=== PATIENT | female | born 1945 | race Two or more races ===

== ENCOUNTER → 2020-08-06 11:20 | Outpatient (BNVA) | payer MEDICARE, SELFPAY | PROVIDERS: PCP Internal Medicine; Visit Provider Internal Medicine | DX: J45.909 Unspecified asthma, uncomplicated (principal) | CPT/HCPCS: 99213 ==

== ENCOUNTER → 2021-02-03 10:52 | Outpatient (BNVA) | payer MEDICARE, SELFPAY | PROVIDERS: PCP Internal Medicine; Visit Provider Internal Medicine | DX: J45.909 Unspecified asthma, uncomplicated (principal); Z79.899 Other long term (current) drug therapy | CPT/HCPCS: 99212 ==

== ENCOUNTER → 2021-08-09 10:15 | Outpatient (BNVA) | payer MEDICARE, SELFPAY | PROVIDERS: PCP Internal Medicine; Visit Provider Internal Medicine | DX: J45.909 Unspecified asthma, uncomplicated (principal); J30.9 Allergic rhinitis, unspecified | CPT/HCPCS: 99212 ==

== ENCOUNTER → 2021-12-08 09:55 | Outpatient (BNVA) | payer MEDICARE, SELFPAY | PROVIDERS: PCP Internal Medicine; Visit Provider Internal Medicine | DX: J45.909 Unspecified asthma, uncomplicated (principal) | CPT/HCPCS: 99212 ==

== ENCOUNTER → 2022-06-16 11:28 | Outpatient (BNVA) | payer MEDICARE, SELFPAY | PROVIDERS: PCP Internal Medicine; Visit Provider Internal Medicine | DX: J45.909 Unspecified asthma, uncomplicated (principal); J30.9 Allergic rhinitis, unspecified | CPT/HCPCS: 99212 ==

== ENCOUNTER → 2022-12-14 11:27 | Outpatient (BNVA) | payer MEDICARE, SELFPAY | PROVIDERS: PCP Internal Medicine; Visit Provider Internal Medicine | DX: J45.909 Unspecified asthma, uncomplicated (principal) | CPT/HCPCS: 99212 ==

== ENCOUNTER → 2023-02-09 14:00 | Outpatient (BNVA) | payer MEDICARE, SELFPAY | PROVIDERS: PCP Internal Medicine; Visit Provider Internal Medicine | DX: J45.909 Unspecified asthma, uncomplicated (principal) | CPT/HCPCS: 99212 ==

== ENCOUNTER 2024-12-19 12:18 | Emergency (ER) | payer MEDICARE, SELFPAY ==
--- NOTE | ~2024-12-19 | CT_ITS ---
EXAMINATION: CT ABDOMEN AND PELVIS WITHOUT CONTRAST CLINICAL INFORMATION: Constipation. Concerning small bowel obstruction. COMPARISON: None available. TECHNIQUE: Multidetector volumetric imaging was performed from the superior aspect of the liver through the pubic symphysis. Sagittal and coronal reformatted images were obtained on the technologist's workstation. This CT examination was performed using dose optimization techniques as appropriate, variously including the following: *Automated exposure control *Adjustment of mA and/or kV according to patient size (this includes techniques or standardized protocols for targeted exams where dose is matched to indication/reason for exam; i.e. extremities or head) *Use of iterative reconstruction technique. DLP: 315 mGy centimeter. FINDINGS: Inadequate evaluation of the intra-abdominal organs and vascular structures due to lack of IV contrast. LUNG BASES: No acute airspace disease or discrete pulmonary nodules. LIVER, GALLBLADDER, AND BILIARY TREE: Liver measures 12 cm. No pericholecystic fluid collection or gallbladder wall thickening. No intrahepatic or extrahepatic biliary ductal dilatation. PANCREAS: No peripancreatic fluid collections. No main pancreatic ductal dilatation. SPLEEN: 7 cm. ADRENAL GLANDS: Soft tissue fullness without nodular lesion. KIDNEYS AND URETERS: 2 mm calcification in the lower pole right pelvicalyceal system. No hydronephrosis in a kidney. BLADDER: Fluid-filled. GASTROINTESTINAL TRACT: There is a questionable thickening at the rectosigmoid colon junction/rectum. Appendix is midline and normal. Abundant stool. Scattered diverticula in the sigmoid colon. No intestinal obstruction pattern. No pneumoperitoneum. No pneumatosis intestinalis. No ascites. ABDOMINAL WALL: Small fat-containing umbilical hernia. LYMPH NODES: No gross lymphadenopathy, mesenteric or retroperitoneal. VASCULAR: Calcified plaques throughout the abdominal aorta wall and iliac arteries the origin of the mesenteric arteries and splenic artery. No aneurysm in the abdominal aorta. Calcified plaques in the descending thoracic aorta. PELVIC VISCERA: Inadequate evaluation, no gross masses. OSSEOUS STRUCTURES: Multilevel thoracolumbar spondylosis more conspicuous at L3-4. No acute fracture. Osteopenia versus osteoporosis. Sclerosis in the inferior right sacroiliac joint. CT/CT abdomen pelvis wo IV con IMPRESSION: Questionable thickening versus peristalsis versus mass at the rectosigmoid colon junction/rectum. Recommend direct inspection. No intestinal obstruction pattern. Diverticular disease, sigmoid colon. Nonobstructing 2 mm nephrolithiasis, right kidney. Small fat-containing umbilical hernia. Fleischner guidelines were followed. Electronically signed by: Glen Mcbride MD 12/19/2024 02:00 PM KIRAN
[2024-12-19 13:05] VITALS: BP 110/83; PULSE 94; RESP 18; TEMP 36.6; O2SAT 100; BMI 45.4
--- NOTE | 2024-12-19 13:11 | ED_ITS ---
HPI - General Adult General Chief complaint: Abdominal Pain Stated complaint: constipation Time Seen by Provider: 12/19/24 16:08 Source: patient Mode of arrival: ambulatory Limitations: no limitations History of Present Illness ED Provider: Kat KENNEDY narrative: 79-year-old female presenting for constipation abdominal pain. Patient states that she has been experiencing constipation for 1 week and she is endorsing lower abdominal pain and pain near her rectum. She denies nausea, vomiting, fevers, chills, chest pain, shortness of breath. Related Data Home Medications ?Medication ?Instructions ?Recorded ?Confirmed amlodipine 5 mg tablet 5 mg PO DAILY 07/20/20 08/09/21 flu vacc [id number](65yr up)PF 180 ml IM 08/06/20 08/09/21 mcg/0.5 mL intramuscular syringe albuterol sulfate 90 mcg/actuation 2 puff inhalation Q6H PRN 12/08/21 aerosol inhaler Previous Rx's ?Medication ?Instructions ?Recorded fluticasone propionate 110 2 puff inhalation BID ASTHMA 30 02/08/23 mcg/actuation HFA aerosol inhaler days #12 grams (Flovent HFA) prednisone 10 mg tablet 10 mg PO BID Asthma Excarbation 5 02/09/23 days #10 tabs polyethylene glycol 3350 17 17 g PO DAILY #238 grams 12/19/24 gram/dose oral powder (Miralax) Allergies Allergy/AdvReac Type Severity Reaction Status Date / Time pseudoephedrine [Sudafed] Allergy Unknown palpitation Verified 12/19/24 13:07 s Review of Systems 2 Review of Systems: Yes all other systems are reviewed and are negative PMFSH Past Medical History Medical History Bronchial asthma Allergic rhinitis Social History Social History Patient Tobacco Use Status: Never used Tobacco Smoked in Last 30 Days: No Use of substances other than those prescribed or required for medical reasons: No Advance Directives: Yes Advance Directives on File: Yes Advance Directives Date on File: 12/19/24 Physical Exam ED Vital Signs: Vital Signs - 24 hr 12/19/24 13:05 12/19/24 16:16 12/19/24 18:12 Temperature 97.9 F 98.2 F Pulse Rate 94 65 79 Respiratory Rate 18 16 16 Blood Pressure 110/83 142/43 H 131/50 L Pulse Oximetry 100 99 98 Oxygen Delivery Method Room Air Room Air Room Air 12/19/24 20:06 12/19/24 20:48 Temperature 98.3 F 98.3 F Pulse Rate 77 77 Respiratory Rate 14 14 Blood Pressure 151/48 H 151/48 H Pulse Oximetry 97 97 Oxygen Delivery Method Room Air Room Air BMI result Body Mass Index 45.4 Well-appearing female in no acute distress A&O x4; normal speech and cognition Lungs clear to auscultation bilaterally with unlabored breathing Normal S1-S2 regular rate and rhythm Abdomen is soft nontender nondistended Rectal exam chaperoned by Malissa Gallegos; non thrombosed external hemorrhoid appreciated; no abscess or areas of erythema appreciated Course Course Course Narrative: RME: 79-year-old female presents to ED for 1 week of constipation and some weight loss. Patient states no relief with [id number] meds. Patient concerned due to daughter from colon cancer. Patient states this is a first-time being constipated in her life. Labs ordered. Dry CT scan ordered Medications Administered Discontinued Medications Generic Name Dose Route Start Last Admin Trade Name Freq PRN Reason Stop Dose Admin Lactulose 15 gm 12/19/24 16:32 12/19/24 17:13 Lactulose 20 Gm/30 Ml Solution PO 12/19/24 16:33 15 gm ONCE ONE Administration Mineral Oil 133 ml 12/19/24 16:31 12/19/24 17:13 Mineral Oil Enema 133 Ml Enema [place] 12/19/24 16:32 133 ml ONCE ONE Administration Medical Decision Making Medical Decision Making [facility] Narrative: 79-year-old female presenting for constipation abdominal pain -I am concerned for the following; benign constipation, hemorrhoidal pain, UTI, diverticulitis, bowel obstruction -labs and imaging studies ordered Lab and imaging interpretation -I reviewed patient's CT and did not appreciate bowel obstruction; radiologist's impression read Questionable thickening versus peristalsis versus mass at the rectosigmoid colon junction/rectum -mild leukocytosis, electrolytes within normal limits, normal lactic acid, normal lipase and LFTs -clean UA Enemas and lactulose ordered Patient made multiple trips to the bathroom reporting minimal stool output I discussed digital disimpaction attempted with patient and she is agreeable to this Lab Data 12/19/24 14:15 12/19/24 14:15 Labs: Lab Results 12/19/24 12/19/24 12/19/24 Range/Units 14:15 16:53 17:15 WBC 12.9 H (4.8-10.8) X10*3/uL RBC 4.38 (4.20-5.50) X10*6/uL Hgb 12.9 (12.0-16.0) g/dl Hct 38.6 (37.0-47.0) % MCV 88.1 (80.0-98.0) fL MCH 29.5 (27.0-33.0) pg MCHC 33.4 (31.0-35.0) g/dl RDW 12.8 (11.0-16.0) % Plt Count 309 (160-400) X10*3/uL MPV 9.6 (9.4-12.3) fL Immature Gran % (Auto) 0.4 (0.0-0.4) % Neut % (Auto) 67.1 (45-73) % Lymph % (Auto) 20.1 (20-40) % [place] % (Auto) 10.7 (2-11) % Eos % (Auto) 1.3 (0-4) % Baso % (Auto) 0.4 (0-2) % Lymph # (Auto) 2.6 (1.2-4.9) X10*3/uL [place] # (Auto) 1.4 H (0.1-1.2) X10*3/uL Eos # (Auto) 0.2 (0.0-0.4) X10*3/uL Baso # (Auto) 0.1 (0.0-0.2) X10*3/uL Abs Immat Gran (auto) 0.05 H (0.00-0.03) X10*3/uL Absolute Neuts (auto) 8.6 H (2.0-8.3) x10*3/uL Absolute Nucleated RBC 0.000 (0.0-0.012) X10*3/uL Nucleated RBC % (auto) 0.0 (0.0-0.2) /100WBC PT 11.0 (10.9-12.4) SEC INR 0.9 (0.9-1.1) APTT 29.5 (26.0-36.8) SEC Sodium 140 (135-145) mmol/L Potassium 4.0 (3.3-5.1) mmol/L Chloride 108 (96-108) mmol/L Carbon Dioxide 25 (22-29) mmol/L Anion Gap 11 L (12-20) BUN 13 (9-16) mg/dL Creatinine 0.83 (0.5-1.4) mg/dL Estim Creat Clear Calc 55.5 Estimated GFR > 60 Random Glucose 107 (60-115) mg/dL Lactic Acid 1.2 (0.5-2.0) mmol/L Calcium 10.0 (8.4-10.2) mg/dL Total Bilirubin 0.7 (0.0-1.0) mg/dL AST 18 (5-31) U/L ALT 9 (0-31) U/L Alkaline Phosphatase 46 (39-117) U/L Total Protein 6.8 (6.5-8.0) g/dL Albumin 4.1 (3.5-5.0) g/dL Lipase 35 (8-78) U/L Urine Color Yellow Urine Appearance Clear Urine pH 5.5 (5.0-9.0) Ur Specific [place] 1.010 (1.005-1.025) Urine Protein Negative (Neg-Trace) mg/dL Urine Glucose (UA) Negative (Negative) mg/dL Urine Ketones 15 (Negative) mg/dL Urine Blood Negative (Negative) Urine Nitrite Negative (Negative) Ur Leukocyte Esterase Trace H (Negative) Urine RBC 0-2 (0-2) /HPF Urine WBC 0-5 (0-5) /HPF Ur Squamous Epith Cells 0-2 (0-2) /HPF Urine Bacteria None Seen (None Seen) Hyaline Casts 0-2 (0-2) /LPF Discharge Plan Discharge Clinical Impression: Hemorrhoid, Constipation Patient Disposition: Home, Self-Care Instructions: Constipation (DC), Hemorrhoids (DC), High Fiber Diet (ED) Additional Instructions: Please refer to the additional resources including discharge paperwork regarding hemorrhoids and constipation. I sent MiraLax to your pharmacy which you can begin taking. Please follow up with the primary care provider next 24:48 hours for reassessment. If you develop any new or worsening symptoms please return to emergency department Prescriptions: New polyethylene glycol 3350 [Miralax] 17 gram/dose powder 17 g PO DAILY Qty: 238 0RF No Action fluticasone propionate [Flovent HFA] 110 mcg/actuation HFA aerosol inhaler 2 puff inhalation BID 30 Days Qty: 12 5RF Rx Instructions: administer with spacer Fluzone High-Dose 2019-20 (PF) 180 mcg/0.5 mL syringe IM amlodipine 5 mg tablet 5 mg PO DAILY albuterol sulfate 90 mcg/actuation HFA aerosol inhaler 2 puff inhalation Q6H PRN prednisone 10 mg tablet 10 mg PO BID 5 Days Qty: 10 0RF Interventions: ED Discharge Assessment Last Done: 12/19/24 20:48 Discharge Date/Time: 12/19/24 20:49 Print Language: Gambian
[2024-12-19 14:18] LABS: MANUAL DIFF FLAG NO
[2024-12-19 14:23] LABS: Basophils Absolute Auto 0.1 X10*3/uL (0.0-0.2); Basophils Percent Auto 0.4 % (0-2); Eosinophils Absolute Auto 0.2 X10*3/uL (0.0-0.4); Eosinophils Percent Auto 1.3 % (0-4); Hematocrit 38.6 % (37.0-47.0); Hemoglobin 12.9 g/dl (12.0-16.0); Imm Gran Abs Auto 0.05 X10*3/uL (0.00-0.03); Imm Gran Pct Auto 0.4 % (0.0-0.4); Lymphocytes Absolute Auto 2.6 X10*3/uL (1.2-4.9); Lymphocytes Percent Auto 20.1 % (20-40); Mean Corpuscular HGB Conc 33.4 g/dl (31.0-35.0); Mean Corpuscular Hemoglobin 29.5 pg (27.0-33.0); Mean Corpuscular Volume 88.1 fL (80.0-98.0); Mean Platelet Volume 9.6 fL (9.4-12.3); Monocytes Absolute Auto 1.4 X10*3/uL (0.1-1.2); Monocytes Percent Auto 10.7 % (2-11); Neutrophils Absolute Auto 8.6 x10*3/uL (2.0-8.3); Neutrophils Percent Auto 67.1 % (45-73); Platelet Count 309 X10*3/uL (160-400); Red Blood Count 4.38 X10*6/uL (4.20-5.50); Red Cell Distribution Width 12.8 % (11.0-16.0); White Blood Count 12.9 X10*3/uL (4.8-10.8)
[2024-12-19 14:25] LABS: INTERNATIONAL NORM RATIO 0.9 (0.9-1.1)
[2024-12-19 14:28] LABS: Partial Thromboplastin Time 29.5 SEC (26.0-36.8)
[2024-12-19 14:36] LABS: Alanine Aminotransferase 9 U/L (0-31); Albumin Level 4.1 g/dL (3.5-5.0); Alkaline Phosphatase 46 U/L (39-117); Anion Gap 11 (12-20); Aspartate Amino Transferase 18 U/L (5-31); Bilirubin Total 0.7 mg/dL (0.0-1.0); Blood Urea Nitrogen 13 mg/dL (9-16); Carbon Dioxide 25 mmol/L (22-29); Chloride 108 mmol/L (96-108); Creatinine Clr Calc Pharmacy 55.5; Estimated Glomerular Filt Rate > 60; Glucose Random 107 mg/dL (60-115); Lipase 35 U/L (8-78); Sodium 140 mmol/L (135-145); Total Protein 6.8 g/dL (6.5-8.0)
[2024-12-19 16:16] VITALS: BP 142/43; PULSE 65; RESP 16; TEMP 36.8; O2SAT 99
--- NOTE | 2024-12-19 16:30 | ECG_ITS ---
Test Reason : GI Blood Pressure : */* mmHG Vent. Rate : 71 BPM Atrial Rate : 71 BPM P-R Int : 140 ms QRS Dur : 76 ms QT Int : 376 ms P-R-T Axes : 70 2 51 degrees QTcB Int : 408 ms Normal sinus rhythm Normal ECG When compared with ECG of 07-Nov-2018 14:33, No significant change was found Referred By: Jon Stephens Electronically Signed By: Marcelino Champion
[2024-12-19 17:13] LABS: Lactic Acid 1.2 mmol/L (0.5-2.0)
[2024-12-19] MEDS: Mineral OiL enema 133 ML ENEMA PR (17:13)
[2024-12-19] MEDS: Lactulose 20 GM/30 ML SOLUTION 15 GM PO (17:13)
[2024-12-19 17:22] LABS: Appearance Urine Clear; Color Urine Yellow; Glucose Urine UA Negative (Negative); Leukocyte Esterase Urine Trace (Negative); Nitrite Urine Negative (Negative); PH 5.5 (5.0-9.0); UMIC TRIGGER UACC YES; Urine Blood Negative (Negative); Urine Ketones 15 mg/dL (Negative); Urine Protein Negative (Neg-Trace)
[2024-12-19 17:38] LABS: Bacteria Urine None Seen (None Seen); Hyaline Casts Urine 0-2 /LPF (0-2); RBC Urine 0-2 /HPF (0-2); Squamous Epithelial Cell Urine 0-2 /HPF (0-2); WBC Urine 0-5 /HPF (0-5)
[2024-12-19 18:12] VITALS: BP 131/50; PULSE 79; RESP 16; O2SAT 98
--- NOTE | 2024-12-19 19:04 | PC.NURSE ---
Patient able to have small BM but still feels there is something stuck up there provider Raffi made aware.
--- OUTSIDE RECORDS SUMMARY | 2024-12-19 19:17 | XMS_ITS | Encounter Summary ---
Author Organization [facility] Address [address] [place] [address] Care Team Providers Care Carpet Journeyman Name Role Phone Andrés Avelar MD Primary Care Provider [phone] Reason for Visit * Reason Onset Date Comments Constipation 12/19/2024 Encounter Details Date Type Department Care Team (Late st Contact Info) Description 12/19/2024 Nurse Triage Adult Medicine [address] [phone] Andrés Avelar MD [address] [place] [id number] Constipation Social History Tobacco Use Types Packs/Day Years Used Date Smoking Tobacco: Never Smokeless Tobacco: Never Alcohol Use Standard Drinks/Week Comments Yes 1.7 (1 standard drink = 0.6 oz p ure alcohol) Comments Unknown Sex and Gender Information Value Date Recorded Sex Assigned at Not on file Legal Sex Female 12:15 AM EST Gender Identity Not on file Sexual Orientation Not on file documented as of this encounter Progress Notes * Anh Mendiola RN - 12/19/2024 11:12 AM EST Reason for Disposition ? ? [1] Constant abdominal pain AND [2] present > 2 hours Answer Assessment - Initial Assessment Questions 1. STOOL PATTERN OR FREQUENCY: How often do you have a bowel movement (BM)? (Normal range: 3 times a day to every 3 days) When was your last BM? 5 days ago 2. STRAINING: Do you have to strain to have a BM? With straining she has small amount of stool 3. ONSET: When did the constipation begin? 5 days ago 5. RECTAL PAIN: Does your rectum hurt when the stool comes out? If Yes, ask: Do you have hemorrhoids? How bad is the pain? (Scale 1-10; or mild, moderate, severe) Has abd pain and rectal blood 6. BM COMPOSITION: Are the stools hard? Hard small stools 7. BLOOD ON STOOLS: Has there been any blood on the toilet tissue or on the surface of the BM? IfYes, ask: When was the last time? Has bright red blood with stools when she wipes 8. CHRONIC CONSTIPATION: Is this a new problem for you? If No, ask: How long have you had this problem? (days, weeks, months) New problem 8. CHANGES IN DIET OR HYDRATION: Have there been any recent changes in your diet? How much fluids are you drinking on a daily basis? How much have you had to drink today? Has changed diet and tried prune juice and fluids 9. MEDICINES: Have you been taking any new medicines? Are you taking any narcotic pain medicines? (e.g., Dilaudid, morphine, Percocet, Vicodin) None 10. LAXATIVES: Have you been using any stool softeners, laxatives, or enemas? If Yes, ask What, how often, and when was the last time? Several days of laxatives 11. ACTIVITY: How much walking do you do every day? Has your activity level decreased in the past week? No changes in activity 12. CAUSE: What do you think is causing the constipation? Unknown 13. MEDICAL HISTORY: Do you have a history of hemorrhoids, rectal fissures, rectal surgery, or rectal abscess? None 14. OTHER SYMPTOMS: Do you have any other symptoms? (e.g., abdomen pain, bloating, fever, vomiting) Npo chest pain or SOB, has a headache, has cramping abd pain, and more pain when she has the urge to empty her bowels, has nausea but has not vomited , today she is on so much discomfort she is stillin bed, has tried to manually disimpact herself but not able to 15. : Is there any chance you are ? When was your last menstrual period? N/a Protocols used: [id number] * Mikayla Mamadou - 12/19/2024 10:57 AM EST Patient call requires triage: Symptoms patient is presenting: Patient is calling in today stating she has been constipated for 3 days. PT has been taking Murelax to help but still hasn't used the BR How long has patient had these symptoms?: 3 days For ALL patients calling to schedule any appointment (routine, sick visit, follow up, consult, etc.) in the outpatient setting please ask the following questions: Do you have fever of higher than 101, sore throat with difficulty swallowing or severe shortness ofbreath? no If YES to any of these above symptoms, send a message to triage and do not book. Red dot. If no, an audio or video visit should be booked. Have you had close contact with someone with Coronavirus in the last 14 days? no Have you traveled abroad? no Have you traveled recently to another state outside of [place], [place], [place], [place], [place], [place], [place]? no o If yes, did you quarantine for 14 days or have a negative covid test? no If yes to any of the above, patient is not to be scheduled in office until after 14 day quarantine or negative covid test. If pain or injury related was it due to an accident at work or from a motor vehicle accident? If yes, date of accident/Injury: No If yes, gather 3rd green party insurance information Third Libertarian Information: not applicable PCP: Andrés Avelar MD Payor: [employer] / Plan: [employer] / Product Type: *No Product type* / documented in this encounter Plan of Treatment Upcoming Encounters Date Type Department Care Team (Late st Contact Info) Description 01/22/2025 10:00 AM EDT Office Visit Adult Medicine [address] [phone] Andrés Avelar MD [address] [place] [phone] documented as of this encounter Visit Diagnoses Not on filedocumented in this encounter Care Teams Carpet Journeyman Relationship Specialty Start Date End Date Andrés Avelar MD [address] [place] [address] PCP - General Internal Medicine 05/12/22 documented as of this encounter
--- OUTSIDE RECORDS SUMMARY | 2024-12-19 19:17 | XMS_ITS | Clinical Summary ---
Author Organization [address] [facility] Address [address] [place] [address] Phone Care Team Providers Care Field Sales Agent Name Role Phone Andrés Avelar MD Primary Care Provider Allergies Active Allergy Reactions Criticality Noted Date Comments Fluticasone Propion-Salmeterol Other 02/26/2018 Reports worsening cough, feeling of sand in throat and chest Ljieidpkggpkx-Bk-Tocraabxk in Other 09/20/2007 Heart palpItations Medications calcium carbonate/vitam in D3 (CALCIUM 500 + D ORAL) Take 1 tablet by mouth 2 (two) times a day. 08/21/2023 Active cetirizine (ZyrTEC) 10 mg tablet Take 1 tablet (10 mg total) by mouth 1 (one) time each day. 10/21/2020 Active cyanocobalamin (VITAMIN B-12) 1,000 mcg tablet Take 1 tablet (1,000 mcg total) by mouth 3 (three) times a week. 12/08/2023 Active amLODIPine-rubi zepril (LOTREL) 5-10 mg per capsule TAKE 1 CAPSULE BY MOUTH EVERY DAY 90 capsule 1 09/29/2024 Active Active Problems Problem Noted Date Diagnosed Date Osteopenia 07/29/2024 Asthma 11/22/2019 Chronic cough 02/16/2018 Age-related osteoporosis wit hout current pathological fracture 08/10/2017 Gout 05/18/2015 Mixed hyperlipidemia 02/05/2015 HTN (hypertension) 12/28/2009 Encounters Date Type Department Care Team Description 12/19/2024 Nurse Triage Adult Medicine [facility] [place] [address] [place] [address] Andrés Avelar MD Constipation 10/22/2024 11:00 AM EST Ancillary Procedure [facility] - [address] [place] [address] Aortic systolic murmur on examination 10/21/2024 Telephone [facility] Cardiology [facility] [address] [place] [address] Cardiology, sp [facility] Insurance Referral (ECHO) from Last 3 Months Immunizations Name Administration Dates Next Due Influenza Quadravalent, MDCK , 0.5ml, with preservative (Flucelvax) 6mo and older 08/10/2017 Influenza trivalent, 0.5mL ( Fluzone High-dose) 65yo and older 09/23/2021,08/03/2020,11/22/2019,08/20,08/07/2014,09/16/2013,09/12/2011 ,08/02/2010,10/05/2005 Influenza trivalent, with pr eservative (Fluzone; Afluria) 6mo and older 08/18/2008 Pneumococcal conjugate 13 va lent (Prevnar 13, PCV13) 2mo and older 08/17/2015 Pneumococcal polysaccharide 23 valent (Pneumovax 23) 2yo and older 12/24/2017,02/21/2017,04/05/2010 Td Tetanus diptheria (Tdvax) 7yo and older 02/16/2018 Tdap Tetanus diptheria acell ular pertussis (Boostrix; Adacel) 7yo and older 02/16/2018,12/13/2007 Zoster recombinant (Shingrix ) 19yo and older 06/05/2023,04/03/2023 Surgical History Surgery Date Site/Laterality Comments COLONOSCOPY 05/29/08 PROCEDURE: [facility] COLONOSCOPY STOMA DX INCLUDING COLLJ SPEC SPX; COMMENT: Up to cecum, good preparation, enlarged external hemorrhoids. SECTION PROCEDURE: [facility] DELIVERY ONLY; COMMENT: X's 2 OTHER SURGICAL HISTORY PROCEDURE: [facility] LIG/TRNSXJ FLP TUBE ABDL/VAG APPR UNI/BI COLONOSCOPY 09/18/2019 PROCEDURE: HISTORICAL COLONOSCOPY; COMMENT: polyps Medical History Medical History Date Comments Unspecified essential hypertension 10/25/2006 DX:Unspecified essential hypertension Heart disease, unspecified 10/25/2006 DX:He art disease, unspecified Unspecified glaucoma(365.9) DX:U nspecified glaucoma(365.9) Gout 05/18/2015 DX:Gout Family History Medical History Relation Name Comments Other cancer Father liver Other: parkinsons Mother Breast cancer Other sister daughter (niece) Cataracts Sister 1 Glaucoma Sister 1 Hypertension Sister 1 Hypertension Sister 2 Hypertension Sister 3 Hypertension Sister 4 Other: dementia Sister 5 Blindness Neg Hx Colon cancer Neg Hx Macular degeneration Neg Hx Ovarian cancer Neg Hx Strabismus Neg Hx Relation Name Status Comments Father Mother Other sister daughter (niece) Alive Sister 1 Alive Sister 2 Alive Sister 3 Alive Sister 4 Alive Sister 5 Sister 6 [place], dementia Sister 7 Alive Social History Tobacco Use Types Packs/Day Years Used Date Smoking Tobacco: Never Smokeless Tobacco: Never Alcohol Use Standard Drinks/Week Comments Yes 1.7 (1 standard drink = 0.6 oz p ure alcohol) Comments Unknown Sex and Gender Information Value Date Recorded Sex Assigned at Not on file Legal Sex Female 12:15 AM EST Gender Identity Not on file Sexual Orientation Not on file Obstetrics History Last Filed Vital Signs Vital Sign Reading Time Taken Comments Blood Pressure 122/64 10/22/2024 10:54 AM EST Pulse 92 09/05/2024 9:42 AM EST Temperature - - Respiratory Rate - - Oxygen Saturation 97% 09/05/2024 9:42 AM EST Inhaled Oxygen Concentration - - Weight 51.3 kg (113 lb) 10/22/2024 10:54 AM EST Height 147.3 cm (4' 10 ) 10/22/2024 10:54 AM EST Body Mass Index 23.62 10/22/2024 10:54 AM EST Plan of Treatment Upcoming Encounters Date Type Department Care Team (Late st Contact Info) Description 01/22/2025 10:00 AM EDT Office Visit Adult Medicine [address] [phone] Andrés Avelar MD [address] [place] [id number] Health Maintenance Due Date Last Done Comments RSV Immunization Patients 60+ Years Old (1 - 1-dose 75+ series) 2020 Social Influencers of Health Screening 10/01/2022 Hypertension/CHF/CAD Annual BMP Blood Test 03/22/2024 03/22/2023 Osteoporosis Screening (Bone Density Screening) 05/31/2024 05/31/2023, 06/20/2018 COVID-19 Vaccine ( - season) 2024 09/09/2021, 12/21/2020, 11/30/2020 Colorectal Cancer Screening: Colonoscopy 09/18/2024 09/18/2019 Depression Screening 07/24/2025 07/24/2024 Falls Risk Assessment 07/24/2025 07/24/2024 Medicare Annual Wellness Visit 07/24/2025 07/24/2024 DTaP,Tdap,and Td Vaccines (4 - Td or Tdap) 02/17/2028 02/16/2018, 02/16/2018, 12/13/2007 Cholesterol Screening (Lipid Panel) 03/22/2028 03/22/2023 Hepatitis C Screening Completed 05/27/2013 Pneumococcal Vaccine: 50+ Years Completed 12/24/2017, 02/21/2017, 08/17/2015, Additional history exists Zoster Vaccines Completed 06/05/2023, 04/03/2023 Influenza Vaccine Completed 07/24/2024, , 08/03/2020, Additional history exists HIB Vaccines Aged Out No longer eligi ble based on patient's age to complete this topic HPV Vaccines Aged Out No longer eligi ble based on patient's age to complete this topic Hepatitis A Vaccines Aged Out No long er eligible based on patient's age to complete this topic Hepatitis B Vaccines Aged Out No long er eligible based on patient's age to complete this topic IPV Vaccines Aged Out No longer eligi ble based on patient's age to complete this topic MMR Vaccines Aged Out No longer eligi ble based on patient's age to complete this topic Meningococcal ACWY Vaccine Aged Out N o longer eligible based on patient's age to complete this topic Meningococcal B Vacine Aged Out No lo nger eligible based on patient's age to complete this topic RSV Immunization Patients Under 20 months Aged Out No longer eligible based on patient's age to complete this topic Varicella Vaccines Aged Out No longer eligible based on patient's age to complete this topic Procedures Procedure Name Priority Date/Time Associated Diagnosis Comments TRANSTHORACIC ECHOCARDIOGRAM (TTE) COMPLETE Routine 10/22/2024 11:22 AM EST Aortic systolic murmur on examination DEPRESSION SCREENING Routine 07/24/2024 FALLS RISK ASSESSMENT Routine 07/24/2024 DXA BONE DENSITY STUDY 1+ SITS AXIAL SKEL Routine 05/31/2023 3:00 PM EDT Age-related osteoporosis without current pathological fracture ANNUAL BMP BLOOD TEST Routine 03/22/2023 LIPID PANEL Routine 03/22/2023 COLONOSCOPY Routine 09/18/2019 HEPATITIS C SCREENING Routine 05/27/2013 from Last 3 Months or Most Recently Relevant to Health Maintenance Results * (ABNORMAL) TRANSTHORACIC ECHOCARDIOGRAM (TTE) COMPLETE (10/22/2024 11:22 AM EST) Left Atrium Minor Lawtons 4.6 cm CV PACS Left Atrium Major Lawtons 5.4 cm CV PACS LA Area Sys (A2C) 15 cm2 CV PACS LA Area Sys (A4C) 18 cm2 CV PACS LA Volume (BP) 43 mL CV PACS RA Area 10.9 cm2 CV PACS RA 2D Volume 23 mL CV PACS AV Mean Gradient 5 mmHg CV PACS Ao VTI 30.0 cm CV PACS AV Peak Shimon 1.6 m/s CV PACS AV Peak Gradient 10 mmHg CV PACS AV Area Continuity Equation 1.9 cm2 CV PACS AV Area Peak Velocity 1.9 cm2 CV PACS Aortic Sinus Valsalva 2.9 cm CV PACS Ascending Aorta 2.9 cm CV PACS IVSD 0.9 0.6 - 0.9 cm CV PACS LVIDD 3.6(A) 3.8 - 5.2 cm CV PACS LVIDS 2.4 2.2 - 3.5 cm CV PACS LVOT Diameter 1.9 cm CV PACS LVOT Mean Shimon 0.7 m/s CV PACS LVOT Mean Grad 2 mmHg CV PACS LVOT Peak VTI 20.4 cm CV PACS LVOT Peak Shimon 1.0 m/s CV PACS LVOT Peak Gradient 4 mmHg CV PACS LVPWD 0.8 0.6 - 0.9 cm CV PACS MV E' Tissue Velocity Lateral 4 cm/s CV PACS MV E' Tissue Velocity Septal 5 cm/s CV PACS LVOT Area 2.8 cm2 CV PACS LVOT Stroke Volume 58 mL CV PACS MV Deceleration Salem 6.3 m/s2 CV PACS E Wave Deceleration Time 176 119 - 242 ms CV PACS MV PHT 51 ms CV PACS MV Peak A Shimon 1.20 m/s CV PACS MV Peak E Shimon 1.10 m/s CV PACS MV Area PHT 4.3 cm2 CV PACS PV Acceleration Time 95 ms CV PACS RV Diastolic Basal Dimension 3.1 2.5 - 4.1 cm CV PACS RV S' 12 cm/s CV PACS TAPSE 18 mm CV PACS E/E' Ratio Septal 22 CV PACS E/E' Ratio Averaged 25 CV PACS LVOT Stroke Index 0 mL/m2 CV PACS Relative Wall Thickness ratio 0.47(A) 0.22 - 0.42 CV PACS LVOT:AV VTI Index 0.68 CV PACS FS 33 % CV PACS LV Mass 2D 83 66 - 150 g CV PACS Ascending Aorta Index 2.03 cm/m2 CV PACS LVOT flow 198 mL/s CV PACS RA 2D Volume Index 16 15 - 27 mL/m2 CV PACS KEVIN Index (VTI) 1.35 cm2/m2 CV PACS KEVIN Index (Pk Shimon) 1.33 cm2/m2 CV PACS LVIDD Index 2.52 cm/m2 CV PACS LVIDS Index 1.68 cm/m2 CV PACS AV Velocity Ratio 0.65 CV PACS E/A Ratio 0.9 0.8 - 2.0 CV PACS E/E' Ratio Lateral 28 CV PACS LA Volume Index (BP) 29 mL/m2 CV PACS LV Mass Index 2D 60 44 - 88 g/m2 CV PACS BSA 1.45 m2 CV PACS Est. RA Pressure 3 mmHg CV PACS RV Free Wall Peak S' 12 cm/s CV PACS RA Major Lawtons 4.2 cm CV PACS RA Major Lawtons Index 2.9(A) 2.2 - 2.8 cm/m2 CV PACS AV Area 2D 1.8 cm2 CV PACS KEVIN Index (2D) 1.26 cm2/m2 CV PACS AV Area Index 1.3 CV PACS Anatomical Region Laterality Modality Ultrasound Narrative 11/04/2024 3:42 PM EST ?Normal biventricular size and systolic function. Normal left ventricular regional wall motion with an ejection fraction of 60 to 65% ?No hemodynamically significant valve disease. Technically adequate, 2D, M-mode, and Doppler echocardiogram without significant pathologic findings. Left Ventricle Left ventricle cavity size is normal. Wall thickness is normal. Systolic function is normal with an ejection fraction of 60-65%. There are no regional LV wall motion abnormalities. Indeterminate diastolic dysfunction. Right Ventricle Right ventricle cavity appears normal. Systolic function is normal. Left Atrium Left atrium cavity size is normal. Right Atrium Right atrium cavity is normal. IVC/SVC Inferior vena cava structure is normal. RA pressures is estimated to be 3 mmHg (IVC diameter <21 mm and decreases >50% during inspiration). Mitral Valve The leaflets are mildly thickened. There is trace regurgitation. There is no evidence of mitral valve stenosis. Tricuspid Valve The leaflets exhibit normal excursion. There is no regurgitation. Cannot assess RVSP. Aortic Valve The aortic valve is trileaflet. The leaflets are mildly thickened. There is no regurgitation or stenosis. Pulmonic Valve Pulmonic valve structure is normal. There is no pulmonic valve regurgitation. Ascending Aorta The aorta appears normal in size. Pericardium There is a prominent anterior epicardial fat pad. There is no pericardial effusion. Study Details Overall the study quality was adequate. Andrés Avelar MD CV ECHO PROCEDURES Final Re sult * Falls Risk Assessment (07/24/2024) [facility] Falls Risk Assessment Abstracted Historical Provider [facility] MAINTENANCE Final Result * Depression Screening (07/24/2024) Depression Screening Abstracted us Historical Provider HEALTH MAINTENANCE Final Result * DXA BONE DENSITY STUDY 1+ SITS AXIAL SKEL (05/31/2023 3:00 PM EDT) Anatomical Region Laterality Modality Bone Densitometr y 12/20/2022 8:57 AM EST Narrative 05/31/2023 5:56 PM EDT BONE DENSITY SCAN (DEXA): FINDINGS: Lumbar Spine T-score is -1.9. ?? (SD relative to 20-29 y/o adult) Z-score is 0.6. ??(SD relative to age matched peers) This is considered osteopenia by WHO criteria. Left Hip T-score is -2.4. Z-score is -0.3. This is considered osteopenia by WHO criteria. Comparison exam(s): 06/20/2018. ??3.2% increase in lumbar spine bone mineral density and 6.1% increase in left hip bone mineral density, both statistically significant at the 95% confidence level. IMPRESSION: IMPRESSION: Osteopenia by WHO criteria. This patient has a 16% risk of major osteoporotic fracture and a 5.6% risk of hip fracture over the next 10 years. (World Health Organization Fracture Risk Assessment) [facility] Department of Internal Medicine recommends using National Osteoporosis Foundation (NOF) guidelines in treatment decisions related to osteoporosis. NOF guidelines suggest considering treatment for postmenopausal women and men aged 50 or older presenting with the following: History of hip or vertebral fracture. T-score = -2.5 (DXA) at the femoral neck, total hip, or spine, after appropriate evaluation to exclude secondary causes. Low bone mass (T-score between -1.0 and -2.5 at the femoral neck or spine) AND a 10-year probability of a hip fracture = 3% OR a 10-year probability of a major osteoporosis-related fracture = 20% based on the [place]-adapted WHO algorithm Please note that all treatment decisions require clinical judgment and consideration of individual patient factors, including patient preferences, co-morbidities, previous drug use, risk factors not captured in the FRAX model (e.g., frailty, falls, vitamin D deficiency, increased bone turnover, interval significant decline in bone density) and possible under- or over-estimation of fracture risk by FRAX. Optional alternative screening schedule based on dayton Patel., [facility] November 10, 2011 for patients with osteopenia (based on hip BMD T-score) is as follows: * ??advanced osteopenia (T scores -2.00 to -2.49), BMD testing every year * ??moderate osteopenia (T scores -1.50 to -1.99), BMD testing every 5 years mild osteopenia or normal BMD (T scores -1.50 and higher), BMD testing every 15 years Procedure Note Joan Harrison MD - 11/27/2023 BONE DENSITY SCAN (DEXA): FINDINGS: Lumbar Spine T-score is -1.9. (SD relative to 20-29 y/o adult) Z-score is 0.6. (SD relative to age matched peers) This is considered osteopenia by WHO criteria. Left Hip T-score is -2.4. Z-score is -0.3. This is considered osteopenia by WHO criteria. Comparison exam(s): 06/20/2018. 3.2% increase in lumbar spine bonemineral density and 6.1% increase in left hip bone mineral density, both statistically significantat the 95% confidence level. IMPRESSION: IMPRESSION: Osteopenia by WHO criteria. This patient has a 16% risk of majorosteoporotic fracture and a 5.6% risk of hip fracture over the next 10 years. (World HealthOrganization Fracture Risk Assessment) [facility] Department of Internal Medicine recommendsusing National Osteoporosis Foundation (NOF) guidelines in treatment decisions related toosteoporosis. NOF guidelines suggest considering treatment for postmenopausal women and menaged 50 or older presenting with the following: History of hip or vertebral fracture. T-score = -2.5 (DXA) at the femoral neck, total hip, or spine, afterappropriate evaluation to exclude secondary causes. Low bone mass (T-score between -1.0 and -2.5 at the femoral neck or spine)AND a 10-year probability of a hip fracture = 3% OR a 10-year probability of a majorosteoporosis-related fracture = 20% based on the [place]-adapted WHO algorithm Please note that all treatment decisions require clinical judgment andconsideration of individual patient factors, including patient preferences, co- morbidities,previous drug use, risk factors not captured in the FRAX model (e.g., frailty, falls, vitaminD deficiency, increased bone turnover, interval significant decline in bone density) andpossible under- or over-estimation of fracture risk by FRAX. Optional alternative screening schedule based on marimar Patel al., NEMJanuary 2011 for patients with osteopenia (based on hip BMD T-score) is as follows: * advanced osteopenia (T scores -2.00 to -2.49), BMD testing every year * moderate osteopenia (T scores -1.50 to -1.99), BMD testing every 5years mild osteopenia or normal BMD (T scores -1.50 and higher), BMD testingevery 15 years Andrés Avelar MD IMG DXA PROCEDURES Final Re sult * Annual BMP Blood Test (03/22/2023) [facility] Annual BMP Blood Test Abstracted Result [facility] Provider HEALTH MAINTENANCE Final Result * Lipid panel (03/22/2023) [facility] LDL/HDL Ratio 3 0 - 4 Triglycerides 93 0 - 150 mg/dL Cholesterol 194 0 - 200 mg/dL HDL 77 >=40 mg/dL LDL Cholesterol 99 0 - 100 mg/dL Blood Venous blood specimen / Unknown Result [facility] Provider LAB BLOOD ORDERABLES Lucia l Result * Colonoscopy (09/18/2019) [facility] Colonoscopy No interpretation , abstracted Anatomical Region Laterality Modality Other Result [facility] Provider HEALTH MAINTENANCE Final Result * Hepatitis C Screening (05/27/2013) [facility] Hepatitis C Screening Abstracted Result [facility] HEALTH MAINTENANCE Final Result from Last 3 Months or Most Recently Relevant to Health Maintenance Insurance [employer] Care Teams Field Sales Agent Relationship Specialty Start Date End Date Andrés Avelar MD [address] [place] [address] PCP - General Internal Medicine 05/12/22
--- NOTE | 2024-12-19 20:04 | PC.NURSE ---
Soap Suds enema administered with fair toleration, patient able to hold for about 5 minutes, small amount of mucousy stool noted in OP. Patient walked to the BR endorsing small BM.
[2024-12-19 20:06] VITALS: BP 151/48; PULSE 77; RESP 14; TEMP 36.8; O2SAT 97
[2024-12-19 20:48] VITALS: BP 151/48; PULSE 77; RESP 14; TEMP 36.8; O2SAT 97
== END 2024-12-19 20:49 | disposition home or self-care (01) ==
PROVIDERS: Physician Assistant; Emergency Provider Student in an Organized Health Care Education/Training Program; PCP Internal Medicine
DX: K59.00 Constipation, unspecified (principal); K64.4 Residual hemorrhoidal skin tags; R10.30 Lower abdominal pain, unspecified
CPT/HCPCS: 36415; 74176; 80053; 81001; 83605; 83690; 85025; 85610; 85730; 93005; 99284

== ENCOUNTER → 2024-12-19 13:12 | Outpatient (BNV) | payer MEDICARE, SELFPAY | PROVIDERS: PCP Internal Medicine; Visit Provider Radiology Diagnostic Radiology | DX: K57.30 Diverticulosis of large intestine without perforation or abscess without bleeding (principal); N20.0 Calculus of kidney | CPT/HCPCS: 74176 ==

== ENCOUNTER → 2024-12-19 16:30 | Outpatient (BNV) | payer MEDICARE, SELFPAY | PROVIDERS: Emergency Provider Student in an Organized Health Care Education/Training Program; PCP Internal Medicine; Visit Provider Internal Medicine Cardiovascular Disease | DX: K92.9 Disease of digestive system, unspecified (principal) | CPT/HCPCS: 93010 ==

== ENCOUNTER 2025-01-02 09:36 | Outpatient (AMB) | payer MEDICARE, SELFPAY ==
--- NOTE | 2025-01-02 09:46 | MHC.OFFVIS ---
Vital Signs 01/02/25 09:47 Height 4 ft 10 in Weight 110 lb 3.698 oz BMI 23.0 BP 122/50 L Blood Pressure Location Lt brachial Position Sitting Pulse 76 Pulse Source Pulse Oximeter Pulse Oximetry (%) 99 Oxygen Delivery Method Room Air Intake Visit Reasons: Asthma Intake Note: pt is here for follow up and is stating she is having a gasping for air sound throughout the day, sleeps well. Aligning Checker Required: No Allergies pseudoephedrine [Sudafed] Allergy (Unknown, Verified 01/02/25 10:07) palpitations Medication List - Last Reconciled 01/02/25 by Beau Snider MD albuterol sulfate 90 mcg/actuation 2 puffs inhalation Q6H PRN amlodipine 5 mg PO DAILY flu vacc [id number](65yr up)PF mL IM fluticasone propionate 110 mcg/actuation (Flovent HFA) 2 puffs inhalation BID 30 days Do you need a note to return to daycare/school/sports/work: No HPI HPI Asthma: Details: This 79 years old very pleasant female is coming to see me for follow-up after more than a year. She has history of mild bronchial asthma for which she had been using Flovent-110 2 puffs b.i.d. and albuterol just p.r.n.. However she ran out of these meds towards the end of last year and since then has not used anything. About 4-6 weeks ago she did have symptoms of mild flu, which resolved without any intervention. However after that she has had spells , of a feeling that she can not take a deep breath, she develops a feeling of gasping, this goes away in a few moments. She denies any active allergy symptoms. Also has not been able to expectorates much mucus. Has no audible wheezes. And she has no significant shortness of breath on her day-to-day activities. [facility] Medical History Bronchial asthma Allergic rhinitis Social History Patient Tobacco Use Status: Never used Tobacco Advance Directives Date on File: 12/19/24 Review of Systems Const All systems reviewed & are unremarkable except as noted in HPI and below Eyes Reports no additional complaints ENT Reports nasal congestion (Mild intermittent, on some days.) Card Reports no additional complaints Resp Reports cough (Mild, especially in morning hours) and Reports wheezing (Mild intermittent in the last few weeks) GI Reports no additional complaints Reports no additional complaints Musc Reports no additional complaints Skin/Breast Reports system reviewed and no additional complaints, except as documented Psych Reports no additional complaints Endo Reports no additional complaints Aller/Immun Reports no additional complaints and Reports wheezing (Mild intermittent in the last few weeks) Physical Exam Vital Signs: Last Vital Signs Pulse 76 01/02/25 09:47 BP 122/50 L 01/02/25 09:47 Pulse Ox 99 01/02/25 09:47 Oxygen Delivery Method Room Air 01/02/25 09:47 BMI result Body Mass Index 23.0 Const General: healthy appearing, comfortable, no acute distress, alert and awake Orientation/consciousness: patient oriented x3 HEENT Head: Yes normal to inspection General nose exam: No nasal polyps present and No nasal discharge present Face and sinus: Yes sinuses nontender Mouth: oropharynx normal Throat: Yes posterior oropharynx normal Eyes General: appearance normal, both eyes and all related structures Neck Neck: Yes normal visual inspection, Yes no lymphadenopathy, Yes trachea midline and Yes no JVD Thyroid: Thyroid normal Chest Chest palpation & inspection: normal inspection of the chest, normal palpation of entire chest wall and no tenderness Resp Effort & Inspection: normal respiratory effort Auscultation: clear to auscultation bilaterally, no crackles, no rales and no wheezes Percussion: percussion normal Cardio Palpation: normal PMI Rate: regular rate Rhythm: regular rhythm Heart sounds: no gallops and no murmurs GI Palpation (GI): Soft to palpation, nontender, No hepatosplenomegaly present and no masses Auscultation: normal bowel sounds Back/Spine/Pelvis Thoracic/Lumbar Spine: thoracic and lumbar spine normal to inspection Skin General skin exam: no rashes or lesions noted Neuro General: patient oriented x3 and no focal motor deficits Cranial nerves: Yes CN's II-XII intact bilaterally Extrem General: Yes normal to inspection, Yes no clubbing, cyanosis or edema and Yes no calf tenderness Psych Speech and movement: Normal speech and movement present Office Procedures Spirometry Testing Spirometry Comments: In office spirometry completed with results given to Dr. Snider. [id number]- Spirometry Results Reviewed Results Reviewed: SPIROMETRY FVC =86 % FEV1= 84 % FEF 25-75 = 74 % Assessment & Plan Assessment & Plan (1) Allergic rhinitis: Comment: SHE HAS CHRONIC ALLERGIC RHINITIS WITH SEASONAL FLARE UPS. AT PRESENT IT IS WELL CONTROLLED WITH ONLY MINIMAL SYMPTOMS. Code(s): J30.9 - Allergic rhinitis, unspecified Category: Medical Plan: [place]: ADVISED TO USE CETIRIZINE 10 MG ONE A DAY ONLY P.R.N. (2) Bronchial asthma: Comment: BRONCHIAL ASTHMA : SHE HAS HAD VERY MILD INTERMITTENT TYPE OF ASTHMA. HAD BEEN UNDER GOOD CONTROL AND SO SHE HAD STOPPED USING THE MEDICATION SINCE LAST VISIT SHE RAN OUT. NOW FOR THE PAST 4-6 WEEKS, AFTER MINIMAL FLU-LIKE SYMPTOMS, SHE IS HAVING MINOR SYMPTOMS SUCH FEELING OF MUCUS STUCK IN THE UPPER AIRWAYS AND GASPING LIKE FEELING. THESE MAY BE VERY. NONSPECIFIC SYMPTOMS Code(s): J45.909 - Unspecified asthma, uncomplicated Category: Medical Plan: ADVISED THAT SHE SHOULD START USING ALBUTEROL HFA 2 PUFFS Q 6 HOURS ONLY P.R.N.. SHE SHOULD ALSO HAVE FLOVENT-110 ON HAND AND IF CONTINUES TO HAVE THE SYMPTOMS THEN SHE SHOULD START USING IT 2 PUFFS B.I.D.. Orders: Orders AMB Spirometry Testing Today J45.909 - Unspecified asthma, uncomplicated Coding Level of Care Code Est Pt Level 3 (83617) Diagnoses Allergic rhinitis J30.9 Bronchial asthma J45.909 CPT Codes Spirometry - CPT: 37464- Spirometry ([id number])
[2025-01-02 09:47] VITALS: BP 122/50; PULSE 76; O2SAT 99; BMI 23.0
--- OUTSIDE RECORDS SUMMARY | 2025-01-02 11:28 | XMS_ITS | Encounter Summary ---
Author Organization [facility] Address [address] [place] [address] Care Team Providers Care Chestnut Tanner Name Role Phone Andrés Avelar MD Primary Care Provider [phone] Reason for Visit * Reason Onset Date Comments Constipation 12/19/2024 Encounter Details Date Type Department Care Team (Late st Contact Info) Description 12/19/2024 Nurse Triage Adult Medicine [address] [phone] Andrés Avelar MD [address] [place] [address] Constipation Social History Tobacco Use Types Packs/Day [...] your last menstrual period? N/a Protocols used: Ofwhycexbiss-O-OX * Mikayla Mamadou - 12/19/2024 10:57 AM [...] traveled recently to another state outside of [place], [place], [place], [place], [place], [place], [place]? no o If yes, did you quarantine [...] of accident/Injury: No If yes, gather 3rd alliance party insurance information Third Alliance Party Information: not applicable PCP: Andrés Avelar MD Payor: [employer] / Plan: [employer] / Product Type: *No Product type* / documented in this encounter Plan of Treatment Upcoming Encounters Date Type Department Care Team (Late st Contact Info) Description 01/22/2025 10:00 AM EDT Office Visit Adult Medicine [address] [phone] Andrés Avelar MD [address] [place] [phone] documented as of this encounter Visit Diagnoses Not on filedocumented in this encounter Care Teams Chestnut Tanner Relationship Specialty Start Date End Date Andrés Avelar MD [address] [place] [address] PCP - General Internal Medicine 05/12/22 documented as of this encounter
--- OUTSIDE RECORDS SUMMARY | 2025-01-02 11:28 | XMS_ITS | Clinical Summary ---
Author Organization [address] [facility] Address [address] [place] [address] Phone Care Team Providers Care Trim Attacher Name Role Phone Andrés Avelar MD Primary Care Provider Allergies Active Allergy Reactions Criticality Noted Date Comments Fluticasone Propion-Salmeterol Other 02/26/2018 Reports worsening cough, feeling of sand in throat and chest Nxnpphbgpmwhn-Ou-Ntdqjrsfw in Other 09/20/2007 Heart palpItations Medications calcium [...] Team Description 12/19/2024 Nurse Triage Adult Medicine [facility] [address] [place] [address] Andrés Avelar MD Constipation 10/22/2024 11:00 AM EST Ancillary Procedure [facility] [address] [place] [address] Aortic systolic murmur on examination 10/21/2024 Telephone [facility] [address] [place] [address] Cardiology, sp [facility] Insurance Referral (ECHO) from Last 3 Months [...] Surgery Date Site/Laterality Comments COLONOSCOPY 05/29/08 PROCEDURE: ND COLONOSCOPY STOMA DX INCLUDING COLLJ SPEC SPX; COMMENT: Up to cecum, good preparation, enlarged external hemorrhoids. SECTION PROCEDURE: [place] DELIVERY ONLY; COMMENT: X's 2 OTHER SURGICAL HISTORY PROCEDURE: ND LIG/TRNSXJ FLP TUBE ABDL/VAG APPR UNI/BI COLONOSCOPY [...] Sister 4 Alive Sister 5 Sister 6 OK, dementia Sister 7 Alive Social History Tobacco [...] 10:00 AM EDT Office Visit Adult Medicine [address] [phone] Andrés Avelar MD [address] [place] [phone] Health Maintenance Due Date Last Done Comments [...] Procedure Name Priority Date/Time Associated Diagnosis Comments EXTERNAL CT REPORT 12/19/[address] REPORT 12/19/2024 TRANSTHORACIC ECHOCARDIOGRAM (TTE) COMPLETE Routine 10/22/2024 11:22 [...] Recently Relevant to Health Maintenance Results * External CT Report (12/19/2024) Only the most recent of2 resultswithin the time period is included. Anatomical Region Laterality Modality Computed Tomogra phy [facility] PROCED[facility] Final Result * (ABNORMAL) TRANSTHORACIC ECHOCARDIOGRAM (TTE) COMPLETE (10/22/2024 11:22 AM EST) Left Atrium Minor Thayer 4.6 cm CV PACS Left Atrium Major Thayer 5.4 cm CV PACS LA Area Sys [...] Volume 58 mL CV PACS MV Deceleration Hampton 6.3 m/s2 CV PACS E Wave Deceleration [...] S' 12 cm/s CV PACS RA Major Thayer 4.2 cm CV PACS RA Major Thayer Index 2.9(A) 2.2 - 2.8 cm/m2 CV [...] Re sult * Falls Risk Assessment (07/24/2024) Falls Risk Assessment Abstracted Result [facility] Historical Provider HEALTH MAINTENANCE Final Result * Depression Screening (07/24/2024) Depression Screening Abstracted Result [facility] Provider [place] HEALTH MAINTENANCE Final Result * DXA BONE [...] (World Health Organization Fracture Risk Assessment) [facility] Department of Internal Medicine recommends using National [...] alternative screening schedule based on dayton Patel., [facility] November 10, 2011 for patients with osteopenia [...] years. (World HealthOrganization Fracture Risk Assessment) [facility] Department of Internal Medicine recommendsusing National Osteoporosis [...] alternative screening schedule based on day[place] Patel., [facility] for patients with osteopenia (based on hip BMD T-score) is as follows: * advanced osteopenia (T scores -2.00 to -2.49), BMD testing every year * moderate osteopenia (T scores -1.50 to -1.99), BMD testing every 5years mild osteopenia or normal BMD (T scores -1.50 and higher), BMD testingevery 15 years Result [facility] Andrés Avelar MD IMG DXA PROCEDURES Final Re sult * Annual BMP Blood Test (03/22/2023) [facility] Annual BMP Blood Test Abstracted Result [facility] Provider HEALTH MAINTENANCE Final Result * Lipid panel (03/22/2023) [facility] LDL/HDL Ratio 3 0 - 4 Triglycerides 93 0 - 150 mg/dL Cholesterol 194 0 - 200 mg/dL HDL 77 >=40 mg/dL LDL Cholesterol 99 0 - 100 mg/dL Blood Venous blood specimen / Unknown Result [facility] Historical Provider LAB BLOOD ORDERABLES Lucia l Result * Colonoscopy (09/18/2019) [facility] Colonoscopy No interpretation , abstracted Anatomical Region Laterality Modality Other Result [facility] Seth SCOTT HEALTH MAINTENANCE Final Result * Hepatitis C Screening (05/27/2013) Hepatitis C Screening Abstracted us Historical Provider HEALTH MAINTENANCE Final Result from Last 3 Months or Most Recently Relevant to Health Maintenance Insurance [employer] Care Teams Trim Attacher Relationship Specialty Start Date End Date Andrés Avelar MD [address] [place] [address] PCP - General Internal Medicine 05/12/22
== END 2025-01-02 10:29 | disposition home or self-care (01) ==
LOC: HO.HPS 09:37
PROVIDERS: PCP Internal Medicine; Visit Provider Internal Medicine
DX: J30.9 Allergic rhinitis, unspecified (principal); J45.909 Unspecified asthma, uncomplicated
CPT/HCPCS: 94010; 99213

== ENCOUNTER → 2025-01-02 09:36 | Outpatient (BNVA) | payer MEDICARE, SELFPAY | PROVIDERS: PCP Internal Medicine; Visit Provider Internal Medicine | DX: J45.909 Unspecified asthma, uncomplicated (principal); Z79.899 Other long term (current) drug therapy | CPT/HCPCS: 94010; 99212 ==

== ENCOUNTER 2025-05-19 13:55 | Outpatient (AMB) | payer MEDICARE, SELFPAY ==
[2025-05-19 14:00] VITALS: BP 140/44; PULSE 85; O2SAT 98; BMI 23.0
--- NOTE | 2025-05-19 14:00 | MHC.OFFVIS ---
Vital Signs 05/19/25 14:00 Height 4 ft 10 in Weight 110 lb 3.698 oz BMI 23.0 BP 140/44 H Blood Pressure Location Lt brachial Position Sitting Pulse 85 Pulse Source Pulse Oximeter Pulse Oximetry (%) 98 Oxygen Delivery Method Room Air Intake Visit Reasons: Asthma Intake Note: pt is here for follow up and states she has been having a crazy cough, that starts from her chest that makes her gasps for air, pcp tried omeprazole. cough is very hard, and it is causing people to be concerned. Armored Car Guard And Driver Required: No Allergies pseudoephedrine (Sudafed) Allergy (Unknown, Verified 05/19/25 14:28) palpitations Medication List - Last Reconciled 05/19/25 by Beau Snider MD albuterol sulfate 90 mcg/actuation 2 puffs inhalation Q6H PRN amlodipine 5 mg PO DAILY calcium carbonate-vitamin D3 500 mg-10 mcg (400 unit) (Calcium 500 With D) 1 tab PO BID cyanocobalamin (vitamin B-12) 1,000 mcg PO 3XW flu vacc [id number](65yr up)PF mL IM fluticasone furoate 100 mcg/actuation (Arnuity Ellipta) 1 inh inhalation DAILY 30 days losartan 25 mg PO DAILY HPI HPI Asthma: Details: THIS 79 YEARS OLD VERY PLEASANT FEMALE COMES BECAUSE OF FREQUENT BOUTS OF COUGH. SHE DOES HAVE LONGSTANDING HISTORY OF ASTHMA VARIANT COUGH, AND PREVIOUSLY WAS CONTROLLED WELL WITH THE FLOVENT HFA. THEN PER INSURANCE COVERAGE IT WAS CHANGED TO ARNUITY, THAT IS A DISC FORM AND DRY POWDER WHICH SHE DOES NOT TOLERATE WELL. SHE SAY IS SHE LIKES TO USE THE HFA MODE OF THE INHALERS. CHANGE FROM IS INHIBITOR TO LOSARTAN, AND ALSO USE OF OMEPRAZOLE HAS NOT HELPED AT ALL. SHE GETS SPASMS AND BOUTS OF COUGH WHICH LINGERS ON FOR SEVERAL MINUTES. [facility] Medical History Bronchial asthma Allergic rhinitis Social History Patient Tobacco Use Status: Never used Tobacco Advance Directives Date on File: 12/19/24 Review of Systems Const All systems reviewed & are unremarkable except as noted in HPI and below Eyes Reports no additional complaints ENT Reports nasal congestion (Mild intermittent, on some days.) Card Reports no additional complaints Resp Reports cough (Mild, especially in morning hours) and Reports wheezing (Mild intermittent in the last few weeks) GI Reports no additional complaints Reports no additional complaints Musc Reports no additional complaints Skin/Breast Reports system reviewed and no additional complaints, except as documented Psych Reports no additional complaints Endo Reports no additional complaints Aller/Immun Reports no additional complaints and Reports wheezing (Mild intermittent in the last few weeks) Physical Exam Vital Signs: Last Vital Signs Pulse 85 05/19/25 14:00 BP 140/44 H 05/19/25 14:00 Pulse Ox 98 05/19/25 14:00 Oxygen Delivery Method Room Air 05/19/25 14:00 BMI result Body Mass Index 23.0 Const General: healthy appearing, comfortable, no acute distress, alert and awake Orientation/consciousness: patient oriented x3 HEENT Head: Yes normal to inspection General nose exam: No nasal polyps present and No nasal discharge present Face and sinus: Yes sinuses nontender Mouth: oropharynx normal Throat: Yes posterior oropharynx normal Eyes General: appearance normal, both eyes and all related structures Neck Neck: Yes normal visual inspection, Yes no lymphadenopathy, Yes trachea midline and Yes no JVD Thyroid: Thyroid normal Chest Chest palpation & inspection: normal inspection of the chest, normal palpation of entire chest wall and no tenderness Resp Effort & Inspection: normal respiratory effort Auscultation: clear to auscultation bilaterally, no crackles, no rales and no wheezes Percussion: percussion normal Cardio Palpation: normal PMI Rate: regular rate Rhythm: regular rhythm Heart sounds: no gallops and no murmurs GI Palpation (GI): Soft to palpation, nontender, No hepatosplenomegaly present and no masses Auscultation: normal bowel sounds Back/Spine/Pelvis Thoracic/Lumbar Spine: thoracic and lumbar spine normal to inspection Skin General skin exam: no rashes or lesions noted Neuro General: patient oriented x3 and no focal motor deficits Cranial nerves: Yes CN's II-XII intact bilaterally Extrem General: Yes normal to inspection, Yes no clubbing, cyanosis or edema and Yes no calf tenderness Psych Speech and movement: Normal speech and movement present Assessment & Plan Assessment & Plan (1) Bronchial asthma: Comment: BRONCHIAL ASTHMA : SHE HAS HAD VERY MILD INTERMITTENT TYPE OF ASTHMA. IT HAD BEEN WELL CONTROLLED WITH THE USE OF FLOVENT HFA. THEN PER INSURANCE IT WAS CHANGED TO ARNUITY, BUT SHE DOES NOT TOLERATE THAT DUE TO THE POWDER IRRITATING HER THROAT. SO SHE ENDS UP USING ALBUTEROL MORE FREQUENTLY. Code(s): J45.909 - Unspecified asthma, uncomplicated Category: Medical Plan: WILL PRESCRIBE AN ALTERNATIVE TO FLOVENT AND ANNUITY, IN THE HFA FORM. ( MAY BE QVAR -80 2 PUFFS DAILY. (2) Allergic rhinitis: Comment: SHE HAS CHRONIC ALLERGIC RHINITIS WITH SEASONAL FLARE UPS. Code(s): J30.9 - Allergic rhinitis, unspecified Category: Medical Plan: MAY USE FLONASE 2 SPRAYS IN EACH NOSTRIL DAILY AND LORATADINE OR CETIRIZINE 10 MG ONCE A DAY PRN. Medications: New beclomethasone dipropionate 80 mcg/actuation (Qvar RediHaler) administer with spacer 1 inh inhalation BID 10.6 grams 3RF ASTHMA 30 days Coding Level of Care Code Est Pt Level 3 (15147) Diagnoses Bronchial asthma J45.909 Allergic rhinitis J30.9
--- OUTSIDE RECORDS SUMMARY | 2025-05-19 14:40 | XMS_ITS | Encounter Summary ---
Author Organization [facility] Address [address] [place] [address] Care Team Providers Care Weight Loss Sales Consultant Name Role Phone Andrés Avelar MD Primary Care Provider [phone] Reason for Referral * Consultation (Routine) - Authorized Specialty Diagnoses / Procedures Referred By Yony schuler Referred To Contact Pulmonary Disease / Pulmonology Diagnoses Chronic cough Mild persistent asthma without complication Andrés Avelar MD [address] [place] [address] Phone: tel: fax: Pulmon[address] [address] Phone: tel: fax: Referral ID Status Reason Start Date Expiration Date Visits Requested Visits Authorized [id number] Authorized Specialty Services Required 05/13/2025 05/13/2026 1 1 Reason for Visit * Reason Onset Date Comments Cough 05/13/2025 Follow-up 05/13/2025 Encounter Details Date Type Department Care Team ([facility] Contact Info) Description 05/13/2025 Telephone Adult Medicine [address] [phone] Andrés Avelar MD [address] [place] [phone] Cough; Follow-up Social History Tobacco Use Types Packs/Day Years Used Date Smoking Tobacco: Never Smokeless Tobacco: Never Alcohol Use Standard Drinks/Week Comments Yes 1.7 (1 standard drink = 0.6 oz p ure alcohol) Interpersonal Safety Answer Date Record ed Physical Abuse 04/03/2025 Verbal Abuse 04/03/2025 Comments Unknown Sex and Gender Information Value Date Recorded Sex Assigned at Not on file Legal Sex Female 12:15 AM EST Gender Identity Not on file Sexual Orientation Not on file documented as of this encounter Ordered Prescriptions Prescription Sig Dispense Quantity Refills Last Filled Start Date End Date omeprazole OTC (PriLOSEC OTC) 20 mg EC tablet Take 1 tablet (20 mg total) by mouth 1 (one) time each day. Do not crush, chew, or split. 90 tablet 05/13/2025 documented in this encounter Progress Notes * Anh Mendiola RN - 05/13/2025 3:27 PM EDT Pt is aware , will picking crew supervisor Rx and f/u with pulmonary * Andrés Avelar MD - 05/13/2025 3:14 PM EDT Chest x-ray did not show any evidence of pneumonia. Untreated acid reflux can cause cough, I am sending a prescription for omeprazole 20 mg daily. I am also referring her to the clinical sociologist for further workup. * Anh Mendiola RN - 05/13/2025 1:26 PM EDT Pt was seen by dr avelar 04/10 for chronic dry cough lasting 3 months , CXR was negative, provider ?If cough was due to benazepril and meds were changed to losartan pt states she has not had any change in cough C/O chest wall tightness especially when she has coughing spasm , none with deep breath denies SOB,able to speak in full sentences and has no audible wheezing, stopped zyrtec ,not using albuterol , cough is non productive for Sputum, denies fever (has not taken temp) able to take PO with no difficulty, denies N/V/D, Advised home care following the cough Protocol. RN reinforced telephone consultation and advice. Reviewed with the patient the signs and symptoms to watch for that would require immediate attention. If symptoms change, worsen or increase in intensity, to call back immediately. Message to dr avelar for consideration * Amyjorge Andersen - 05/13/2025 1:11 PM EDT The patient is calling in regards to OV 04/10/25, Chronic Cough.She states that she is still having the same symptoms and was wondering if possible to be seen again or what could be done in regards tothis cough. documented in this encounter Plan of Treatment Upcoming Encounters Date Type Department Care Team (Late st Contact Info) Description 06/25/2025 11:30 AM EDT Office Visit Adult Medicine [address] [phone] Andrés Avelar MD [address] [place] [address] Scheduled Referrals Name Type Priority Associated Diagnoses Orde r Schedule Ambulatory referral to Pulmonology Outpatient Referral Routine Chronic cough Mild persistent asthma without complication 1 Occurrences starting 05/13/2025 until 05/13/2026 documented as of this encounter Visit Diagnoses Diagnosis Chronic cough- Primary Cough Mild persistent asthma without complication documented in this encounter Care Teams Weight Loss Sales Consultant Relationship Specialty Start Date End Date Andrés Avelar MD [address] [place] [address] PCP - General Internal Medicine 05/12/22 documented as of this encounter
--- OUTSIDE RECORDS SUMMARY | 2025-05-19 14:40 | XMS_ITS ---
Author Name [facility] Organization Unknown Care Team Organization Name Specialty Phone Email Start Date End Da te [facility] Medeiros Primary Care 12/28/2022 06/10/2024 [facility] Termed, PROVIDER Primary Care 08/30/202205/23
== END 2025-05-19 14:28 | disposition home or self-care (01) ==
LOC: HO.HPS 13:55
PROVIDERS: PCP Internal Medicine; Visit Provider Internal Medicine
DX: J45.909 Unspecified asthma, uncomplicated (principal); J30.9 Allergic rhinitis, unspecified
CPT/HCPCS: 99213

== ENCOUNTER → 2025-05-19 13:55 | Outpatient (BNVA) | payer MEDICARE, SELFPAY | PROVIDERS: PCP Internal Medicine; Visit Provider Internal Medicine | DX: R05.3 Chronic cough (principal); J30.9 Allergic rhinitis, unspecified | CPT/HCPCS: 99212 ==